=== PATIENT | male | born 1965 | race Caucasian/White ===

== ENCOUNTER 2024-03-13 07:23 | Emergency (ER) | payer OTHER ==
[2024-03-13 08:42] LABS: #Basophils Less than 0.03 10x3/uL (0.0-0.2); %Basophils 0.3 % (0.0-1.0); %Eosinophils 3.1 % (0.0-10.0); %Lymphocytes 17.9 % (21.0-51.0); %Monocytes 10.2 % (0.0-10.0); %Neutrophils 67.7 % (42.0-75.0); Hematocrit 36.8 % (42.0-52.0); Hemoglobin 12.2 g/dL (14.0-18.0); Mean Corpuscular HGB CONC 33.2 g/dL (32.0-36.0); Mean Corpuscular Hemoglobin 30.5 pg (27.0-31.0); Mean Platelet Volume 9.8 fL (7.4-10.4); Platelet Count 272 10x3/uL (130-400)
[2024-03-13 08:57] LABS: ALT (SGPT) 15 U/L (8-55); AST (SGOT) 15 U/L (5-34); Albumin 3.7 g/dL (3.5-5.0); Alkaline Phosphatase 73 U/L (40-110); Anion Gap 13 mmol/L (10-20); BUN (Urea Nitrogen) 19 mg/dL (8.4-25.7); Bilirubin, Total 0.4 mg/dL (0.2-1.2); Calc. Creatinine Clearance 0 mL/min (70-130); Calcium 9.4 mg/dL (7.8-10.44); Carbon Dioxide 28 mmol/L (22-29); Chloride 103 mmol/L (98-107); Estimated GFR 106; Glucose 96 mg/dL (70-105); Potassium 4.6 mmol/L (3.5-5.1); Protein, Total 8.7 g/dL (6.0-8.3); Sodium 139 mmol/L (136-145)
[2024-03-13] MEDS ORDERED: Iopamidol-370 76% 500 ML MDV (1 ML CHARGE) ONE (09:08)
[2024-03-13] MEDS ORDERED: Ketorolac Tromethamine 30 MG (1 mL) VIAL ONE (10:08)
[2024-03-13 12:07] LABS: Bacteria/HPF None Seen HPF (None Seen); Bilirubin Negative (Negative); Blood, Urine Negative (Negative); CAUTI Indications for Culture Pelvic or flank pain; Clarity Clear (Clear); Glucose, Urine (Dipstick) Normal (Negative); Ketone, Urine Negative (Negative); Leukocyte Negative Leu/uL (Negative); Nitrite Negative (Negative); Protein, Urine (Dipstick) Negative (Neg-Trace); RBC/HPF 0-3 HPF (0-3); Specific Gravity, Urine 1.046 (1.002-1.036); Squamous Epithelial None Seen HPF (0-3); Urobilinogen Normal mg/dL (Less than 2); WBC/HPF 0-3 HPF (0-3)
[2024-03-13 12:17] LABS: Urine Culture Reflex No No
[2024-03-13] MEDS ORDERED: Lidocaine 1% PF 5 ML VIAL ONE (12:43)
[2024-03-13] MEDS ORDERED: cefTRIAXone (ROCEPHIN) 2 GM VIAL ONE (12:43)
== END 2024-03-13 12:58 ==
LOC: ERS 07:23
DX: K52.9 Noninfective gastroenteritis and colitis, unspecified (principal); I10 Essential (primary) hypertension
CPT/HCPCS: 36415; 74177; 80053; 81001; 83605; 85025; 96372; 96374; J0696; J1885; Q9967